=== PATIENT | male | born 1995 | race African-American/Black ===

== ENCOUNTER 2016-05-16 14:10 | Emergency (ER) | payer OTHER ==
[~2016-05-16] VITALS: Ht 185.4 cm; Wt 102.1 kg
[2016-05-16] MEDS ORDERED: ACETAMINOPHEN 500 MG TAB PO ONE ×2 (14:27→14:45)
[2016-05-16 15:19] VITALS: BP 124/77
== END 2016-05-16 16:11 | disposition home or self-care (01) ==
LOC: ER 14:16
DX: J02.9 Acute pharyngitis, unspecified (principal)